=== PATIENT | male | born 1960 | race Caucasian/White ===

== ENCOUNTER → 2019-07-18 | Outpatient (CLI) | payer MEDICARE ==
--- NOTE | 2019-07-18 13:17 | Diagnostic Imaging Report ---
INDICATION: Acute low back pain and right sided sciatica. TIME OF EXAM: 11:51 AM FINDINGS: Curvature and alignment of the lumbar spine is normal. Vertebral body heights are maintained. No acute compression fracture is seen. There is some generalized multilevel marginal spurring. Disc spaces are fairly well-maintained. There appears to be significant lower lumbar facet arthropathy. No fractures are identified. IMPRESSION: Lumbar spondylosis. No acute bony abnormality is detected. Dictated by: Dictated on workstation # [id number]
== END ==
LOC: RAD FS 11:47
PROVIDERS: ATTEND Nurse Practitioner Family
DX: M47.816 Spondylosis without myelopathy or radiculopathy, lumbar region (principal)
CPT/HCPCS: 72100

== ENCOUNTER 2022-03-07 10:38 | Emergency (ER) | payer MEDICARE, MEDICAID ==
[~2022-03-07] VITALS: Ht 168 cm; Wt 91.0 kg
[2022-03-07] MEDS ORDERED: CYCL10TA25 PO (11:09)
[2022-03-07] MEDS ORDERED: IBUP-1780 PO (11:09)
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
[2022-03-07 11:13] VITALS: BP 132/90
== END 2022-03-07 11:12 | disposition home or self-care (01) ==
LOC: EDUNIT# 10:38 → ER 10:40
DX: M54.16 Radiculopathy, lumbar region (principal); M79.605 Pain in left leg; F17.210 Nicotine dependence, cigarettes, uncomplicated; F17.290 Nicotine dependence, other tobacco product, uncomplicated
CPT/HCPCS: 99281

== ENCOUNTER 2023-06-17 13:56 | Emergency (ER) | payer MEDICARE, MEDICAID ==
[~2023-06-17] VITALS: Ht 167 cm; Wt 75.0 kg
[~2023-06-17 13:56] MED LIST: CYCL10TA25 PO; IBUP-1780 PO
[2023-06-17 14:04] VITALS: BP 124/94
[2023-06-17] MEDS ORDERED: NS IV 1000 ML 1,000 ML IV STA (14:26)
[2023-06-17] MEDS ORDERED: KETOROLAC INJ 15 MG/ML VIAL IVP STA (14:26)
[2023-06-17 14:35] LABS: BASOPHILS # (AUTO) 0.1 10^3/uL (0.0-0.1); BASOPHILS % (AUTO) 1 % (0-10); EOSINOPHILS # (AUTO) 0.2 10^3/uL (0.0-0.3); EOSINOPHILS % (AUTO) 2 % (0-10); HEMATOCRIT 46 % (40-54); HEMOGLOBIN 15.8 g/dL (13.3-17.7); LYMPHOCYTES # (AUTO) 0.9 10^3/uL (1.0-4.0); LYMPHOCYTES % (AUTO) 9 % (12-44); MEAN CORPUSCULAR HEMOGLOBIN 31 pg (25-34); MEAN CORPUSCULAR HGB CONC 34 g/dL (32-36); MEAN CORPUSCULAR VOLUME 90 fL (80-99); MEAN PLATELET VOLUME 12.1 fL (9.0-12.2); MONOCYTES # (AUTO) 0.8 10^3/uL (0.0-1.0); MONOCYTES % (AUTO) 8 % (0-12); NEUTROPHILS # (AUTO) 8.1 10^3/uL (1.8-7.8); NEUTROPHILS % (AUTO) 80 % (42-75); PLATELET COUNT 269 10^3/uL (130-400)
[2023-06-17 14:36] LABS: PROTHROMBIN TIME PATIENT 13.9 SEC (12.2-14.7)
[2023-06-17 14:41] LABS: FIBRIN DEGRADATION PRODUCTS 1.44 UG/ML (0.00-0.49)
[2023-06-17 14:42] LABS: ALBUMIN 3.7 GM/DL (3.2-4.5); BILIRUBIN,TOTAL 0.4 MG/DL (0.1-1.0); CALCIUM 9.2 MG/DL (8.5-10.1); CREATININE SERUM 0.69 MG/DL (0.60-1.30); POTASSIUM 3.3 MMOL/L (3.6-5.0); TOTAL PROTEIN 6.4 GM/DL (6.4-8.2)
--- NOTE | 2023-06-17 15:23 | ED Upper Extremity ---
General Chief Complaint: Upper Extremity Stated Complaint: LT HAND SWELLING; FALL Nursing Triage Note: Patient has presented to ER with cc of left hand swelling that started on last Monday when he fell in the back yard. The swelling did get better for a short time but it has gotten worse. Patient has taken ibuprofen and used ice for the hand but it has not helped. Patient has added that he injected meth on Monday and it has been swollen since. Source: patient History of Present Illness Date Seen by Provider: Jun 17, 2023 Time Seen by Provider: 14:02 Initial Comments 62-year-old male presenting with complaints of swelling and pain to his left hand and forearm. He states that he is an IV drug user and had a relapse on Monday injecting methamphetamines in his left arm. He then had a syncopal episode when working in the heat on the Monday and fell on his arm. He states that the swelling and pain has been getting worse. He was concerned for possible infection versus blood clot. He does not know if there is any fractures. He did not try and follow-up with the clinic or be seen before today. He states that he has been taking some ibuprofen and using ice which helps some with his hand but then felt that everything was worse today. Onset: last week Severity: severe Pain/Injury Location: left forearm, left hand Method of Injury: fell (Fell on his arm Monday as well as injected methamphetamines on Monday) Modifying Factors: Worse With Movement Allergies and Home Medications Allergies Coded Allergies: fentanyl (Verified Allergy, Unknown, 06/17/23) varenicline (Verified Allergy, Unknown, 06/17/23) Patient Home Medication List Home Medication List Reviewed: Yes Amoxicillin/Potassium Clav (Amox Tr-K Clv 875-125 mg Tab) 875 Mg-125 Mg Tablet, 1 EACH PO BID Prescribed by: JORGE HUITRON on 06/17/23 1636 Cyclobenzaprine HCl (Cyclobenzaprine HCl) 10 Mg Tablet, 10 MG PO TID PRN for PAIN-MODERATE (5-7) Prescribed by: KOTA SUGGS on 03/07/22 1109 Ibuprofen (Ibuprofen) 800 Mg Tablet, 800 MG PO Q8H PRN for PAIN Prescribed by: KOTA SUGGS on 03/07/22 1109 Ibuprofen (Ibuprofen) 800 Mg Tablet, 800 MG PO Q8H PRN for PAIN Prescribed by: JORGE HUITRON on 06/17/23 1636 Review of Systems Constitutional: No chills, No fever EENTM: no symptoms reported Respiratory: no symptoms reported Cardiovascular: no symptoms reported Gastrointestinal: no symptoms reported Genitourinary: no symptoms reported Musculoskeletal: see HPI Skin: see HPI Psychiatric/Neurological: Denies Numbness, Denies Paresthesia Past Aolakmt-Trdask-Lfrgli Hx Patient Social History Tobacco Use?: Yes Tobacco type used: Cigarettes Smoking Status: Current Everyday Smoker Substance use?: Yes Substance frequency: Several times a month Alcohol Use?: No Past Medical History Surgery/Hospitalization HX: TONSILECTOMY, LT KNEE SCOPE Physical Exam Vital Signs Vital Signs - First Documented 06/17/23 14:04 Temp 36.3 Pulse 91 Resp 16 B/P (MAP) 124/94 (104) Pulse Ox 97 O2 Delivery Room Air Capillary Refill : Height, Weight, BMI Height: '" Weight: lbs. oz. kg; 26.00 BMI Method: General Appearance: other (Chronically ill-appearing) Cardiovascular: normal peripheral pulses, regular rate, rhythm Respiratory: chest non-tender, lungs clear, normal breath sounds Gastrointestinal: normal bowel sounds, non tender, soft, no pulsatile mass Elbow/Forearm: Left, limited ROM (Due to swelling), soft tissue tenderness, swelling Wrist: Yes limited ROM (Due to swelling in the left wrist), Yes pain, Yes soft tissue tenderness, Yes swelling Hand: Left, limited ROM (Due to swelling), soft tissue tenderness, stiffness, swelling Neurologic/Psychiatric: alert, oriented x 3 Skin: warm/dry, other (Mild increased erythema to the left forearm and increased swelling to the forearm and hand.) Progress/Results/Core Measures Results/Orders Lab Results Laboratory Tests Test 06/17/23 14:15 Range/Units White Blood Count 10.0 4.3-11.0 10^3/uL Red Blood Count 5.12 4.30-5.52 10^6/uL Hemoglobin 15.8 13.3-17.7 g/dL Hematocrit 46 40-54 % Mean Corpuscular Volume 90 80-99 fL Mean Corpuscular Hemoglobin 31 25-34 pg Mean Corpuscular Hemoglobin Concent 34 32-36 g/dL Red Cell Distribution Width 13.2 10.0-14.5 % Platelet Count 269 130-400 10^3/uL Mean Platelet Volume 12.1 9.0-12.2 fL Immature Granulocyte % (Auto) 1 % Neutrophils (%) (Auto) 80 H 42-75 % Lymphocytes (%) (Auto) 9 L 12-44 % Monocytes (%) (Auto) 8 0-12 % Eosinophils (%) (Auto) 2 0-10 % Basophils (%) (Auto) 1 0-10 % Neutrophils # (Auto) 8.1 H 1.8-7.8 10^3/uL Lymphocytes # (Auto) 0.9 L 1.0-4.0 10^3/uL Monocytes # (Auto) 0.8 0.0-1.0 10^3/uL Eosinophils # (Auto) 0.2 0.0-0.3 10^3/uL Basophils # (Auto) 0.1 0.0-0.1 10^3/uL Immature Granulocyte # (Auto) 0.1 0.0-0.1 10^3/uL Prothrombin Time 13.9 12.2-14.7 SEC INR Comment 1.0 0.8-1.4 Activated Partial Thromboplast Time 26 24-35 SEC D-Dimer 1.44 H 0.00-0.49 UG/ML Sodium Level 137 135-145 MMOL/L Potassium Level 3.3 L 3.6-5.0 MMOL/L Chloride Level 100 98-107 MMOL/L Carbon Dioxide Level 27 21-32 MMOL/L Anion Gap 10 5-14 MMOL/L Blood Urea Nitrogen 13 7-18 MG/DL Creatinine 0.69 0.60-1.30 MG/DL Estimat Glomerular Filtration Rate 105 BUN/Creatinine Ratio 19 Glucose Level 106 H 70-105 MG/DL Lactic Acid Level 1.00 0.50-2.00 MMOL/L Calcium Level 9.2 8.5-10.1 MG/DL Corrected Calcium 9.4 8.5-10.1 MG/DL Total Bilirubin 0.4 0.1-1.0 MG/DL Aspartate Amino Transf (AST/SGOT) 54 H 5-34 U/L Alanine Aminotransferase (ALT/SGPT) 27 0-55 U/L Alkaline Phosphatase 110 40-136 U/L C-Reactive Protein 2.91 H <0.50 MG/DL Total Protein 6.4 6.4-8.2 GM/DL Albumin 3.7 3.2-4.5 GM/DL My Orders Orders - JORGE HUITRON MD Cbc With Automated Diff (06/17/23 14:26) Comprehensive Metabolic Panel (06/17/23 14:26) Blood Culture (06/17/23 14:) Ua Culture If Indicated (06/17/23 14:26) Ed Iv/Invasive Line Start (06/17/23 14:26) Crp Fs (06/17/23 14:26) Lactic Acid Analyzer (06/17/23 14:26) Hand 3 View Left (06/17/23 14:26) Forearm 2 View Left (06/17/23 14:26) Drug Screen Stat (Urine) (06/17/23 14:26) Ns Iv 1000 Ml (Ns Iv 1000 Ml) (06/17/23 14:) Ketorolac Injection (Ketorolac Injection (06/17/23 14:) Fibrin Degradation Products (06/17/23 14:) Protime With Inr (06/17/23 14:) Partial Thromboplastin Time (06/17/23 14:26) Us Venous Upper Ext Left (06/17/23 15:26) Ceftriaxone Iv/Im (Ceftriaxone Iv/Im) (06/17/23 15:51) Manjit Bandage (06/17/23 16:36) Vital Signs/I&O 06/17/23 14:04 Temp 36.3 Pulse 91 Resp 16 B/P (MAP) 124/94 (104) Pulse Ox 97 O2 Delivery Room Air Blood Pressure Mean: 104 Progress Progress Note #1: Progress Note Potential diagnosis of hand fracture, wrist fracture, forearm fracture, DVT, cellulitis. Obtain peripheral IV access and send labs for complete blood count, comprehensive metabolic profile, blood cultures, lactic acid, coagulation factors, D-dimer. X-rays of the forearm and hand on the left side. Administer normal saline 1 L IV fluid bolus for hydration, Progress Note #2: Progress Note Labs showed a normal white blood cell count of 10. His hemoglobin was normal range at 15.8. His comprehensive metabolic panel did not show any acute electrolyte abnormality. His D-dimer was elevated and so I checked with radiology about if the agriculture laboratory technician was around to do the test today were wanted to have the patient come back in the morning for DVT study. The opted to come in and do the DVT study and this afternoon. We will start patient on antibiotics of Rocephin 1 g IV for cellulitis. Plan to continue Augmentin at home. Progress Note #3: Progress Note Negative ultrasound study for DVT. Continue with the antibiotics and encouraged Tylenol and ibuprofen as needed for pain. Urged to check back with [facility] to help get into a treatment program for the methamphetamine abuse. If not doing better by Monday or Monday with the antibiotics he may need IV antibiotic and admission. Diagnostic Imaging Diagonstic Imaging: Xray Plain Films/CT/US/NM/MRI: forearm Comments [facility] [place] [place] NAME: RUFINO RAIN [employer] REC#: [id number] PT STATUS: REG ER : 1960 PHYSICIAN: JORGE HUITRON MD ADMIT DATE: 06/17/23/ER FS Signed Date of Exam:06/17/23 FOREARM 2 VIEW LEFT INDICATION: Pain, swelling, fall, suspicion for foreign body, limitations in range of motion. EXAMINATION: Two view left forearm performed. FINDINGS: There is subcutaneous edema and swelling about the forearm but no appreciable gas or opaque foreign body. No bony destruction or abnormal periosteal reaction. No fracture identified. IMPRESSION: Soft tissue swelling and subcutaneous edema but no acute bony pathology, foreign body or gas apparent. Dictated by: Dictated on workstation # [id number] Dict: 06/17/23 1522 Trans: 06/17/23 1525 [facility] [id number] Interpreted by: LAURA PARK Electronically signed by: LAURA PARK 06/17/23 1525 Reviewed: Reviewed by Pr Diagonstic Imaging: Xray Plain Films/CT/US/NM/MRI: hand Comments [facility] [place] NAME: RUFINO RAIN [employer] REC#: [id number] PT STATUS: REG ER : 1960 PHYSICIAN: JORGE HUITRON MD ADMIT DATE: 06/17/23/ER FS Signed Date of Exam:06/17/23 HAND 3 VIEW LEFT EXAMINATION: Left hand radiographs, 3 views. COMPARISON: None. HISTORY: 62-year-old male, left hand swelling. FINDINGS: There is no acute fracture. There is dorsal soft tissue swelling at the level of the metacarpals. There is no radiopaque foreign body. Joint spaces are well preserved. No bone erosion. IMPRESSION: 1. Nonspecific dorsal soft tissue swelling at the level of the metacarpals. 2. Additional radiographic assessment of the left hand is unremarkable. Dictated by: Dictated on workstation # [id number] Dict: 06/17/23 1523 Trans: 06/17/23 1530 [facility] [id number] Interpreted by: LAURENCE OSEGUERA MD Electronically signed by: LAURENCE OSEGUERA MD 06/17/23 1530 Reviewed: Reviewed by Me Diagonstic Imaging: Ultrasound Plain Films/CT/US/NM/MRI: forearm Comments NAME: RUFINO RAIN [facility] REC#: [id number] PT STATUS: REG ER : 1960 PHYSICIAN: JORGE HUITRON MD ADMIT DATE: 06/17/23/ER FS Draft Date of Exam:06/17/23 US VENOUS UPPER EXT LEFT PROCEDURE: US venous upper extremity left. TECHNIQUE: Multiple realtime grayscale images were obtained of left upper extremity in various projections. Additional spectral analysis and color Doppler duplex images were also obtained. INDICATION: Pain and swelling, elevated D-dimer. FINDINGS: Left upper extremity venous system showed normal color flow, normal compressibility and normal waveforms. No deep or superficial thrombus identified. There is some subcutaneous edema about the forearm. IMPRESSION: Negative for venous thrombus. Dictated on workstation # [id number] Dict: 06/17/23 1625 Trans: 06/17/23 1627 [facility] [id number] Interpreted by: LAURA PARK Electronically signed by: Reviewed: Reviewed by Me Departure Impression Primary Impression: Pain and swelling of left forearm Additional Impressions: Swelling of left hand IV drug abuse Cellulitis of forearm, left Elevated d-dimer Disposition: 01 HOME, SELF-CARE Condition: Stable Departure-Patient Inst. Decision time for Depature: 16:34 Referrals: YEISON SWIFT APRN (PCP) Primary Care Physician [facility]/YA[facility] (Family) Primary Care Physician Patient Instructions: Substance Use Disorder ED, Cellulitis (Skin Infection), Adult ED Add. Discharge Instructions: Use the Manjit bandage for compression and to help with the swelling. Try to keep your arm elevated above heart level is much as possible to help with swelling and pain. Take the antibiotics to help treat for cellulitis and infection in the arm. Check back with the clinic if not seeing improvement by Monday with the antibiotics. They may need to admit you for IV antibiotics if you were worsening instead of improving. All discharge instructions reviewed with patient and/or family. Voiced understanding. Scripts Ibuprofen (Ibuprofen) 800 Mg Tablet 800 MG PO Q8H PRN for PAIN for 10 Days, #30 TAB 0 Refills Prov: JORGE HUITRON MD 06/17/23 Amoxicillin/Potassium Clav (Amox Tr-K Clv 875-125 mg Tab) 875 Mg-125 Mg Tablet 1 EACH PO BID for cellulitis for 10 Days, #20 TAB 0 Refills Prov: JORGE HUITRON MD 06/17/23 JORGE HUITRON MD Jun 17, 2023 15:23
--- NOTE | 2023-06-17 15:26 | Diagnostic Imaging Report ---
INDICATION: Pain, swelling, fall, suspicion for foreign body, limitations in range of motion. EXAMINATION: Two view left forearm performed. FINDINGS: There is subcutaneous edema and swelling about the forearm but no appreciable gas or opaque foreign body. No bony destruction or abnormal periosteal reaction. No fracture identified. IMPRESSION: Soft tissue swelling and subcutaneous edema but no acute bony pathology, foreign body or gas apparent. Dictated by: Dictated on workstation # [id number]
[2023-06-17] MEDS ORDERED: cefTRIAXone IV/IM 1,000 MG in NS (IVPB) 50 ML 50 ML IV STA (15:51)
--- NOTE | 2023-06-17 16:27 | Diagnostic Imaging Report ---
PROCEDURE: US venous upper extremity left. TECHNIQUE: Multiple realtime grayscale images were obtained of left upper extremity in various projections. Additional spectral analysis and color Doppler duplex images were also obtained. INDICATION: Pain and swelling, elevated D-dimer. FINDINGS: Left upper extremity venous system showed normal color flow, normal compressibility and normal waveforms. No deep or superficial thrombus identified. There is some subcutaneous edema about the forearm. IMPRESSION: Negative for venous thrombus. Dictated by: Dictated on workstation # [id number]
[2023-06-17] MEDS ORDERED: IBUP-1780 PO (16:36)
[2023-06-17] MEDS ORDERED: AMOX1TAB12 PO (16:36)
== END 2023-06-17 17:10 | disposition home or self-care (01) ==
LOC: EDUNIT# 13:56 → ER FS 13:57
DX: L03.114 Cellulitis of left upper limb (principal); F19.10 Other psychoactive substance abuse, uncomplicated; R79.89 Other specified abnormal findings of blood chemistry; F17.210 Nicotine dependence, cigarettes, uncomplicated
CPT/HCPCS: 36415; 73130; 80053; 83605; 85025; 85379; 85610; 85730; 86141; 87040